=== PATIENT | male | born 1995 | race Caucasian/White ===

== ENCOUNTER 2018-05-11 01:32 | Emergency (ER) | payer OTHER ==
[~2018-05-11] VITALS: Ht 185.4 cm; Wt 82.8 kg
[2018-05-11] MEDS ORDERED: ETOMIDATE INJ 20MG/10ML VIAL ONE (01:33)
[2018-05-11] MEDS ORDERED: SUCCINYLCHOLINE 100 MG/5 ML SYRINGE (J0330) ONE (01:33)
[2018-05-11] MEDS ORDERED: PROPOFOL 1,000 MG/100 ML VIAL As Ordered ONE ×2 (01:36→03:01)
[2018-05-11] MEDS ORDERED: ISOVUE-370 76% 100ML VIAL (Q9967) As Ordered ONE (01:58)
[2018-05-11] MEDS ORDERED: PATIENT COMMENTS (02:02)
[2018-05-11 02:05] LABS: HEMATOCRIT 44.6 % (42.0-52.0); MEAN CORPUSCULAR HEMOGLOBIN 31.6 pg (27.0-33.0); MEAN CORPUSCULAR HGB CONC 33.6 g/dl (32.0-36.5); MEAN CORPUSCULAR VOLUME 94.1 fl (80.0-96.0); PLATELET COUNT, AUTOMATED 299 10^3/uL (150-450); RED BLOOD COUNT 4.74 10^6/uL (4.30-6.10); WHITE BLOOD COUNT 10.8 10^3/uL (4.0-10.0)
[2018-05-11 02:17] LABS: INR 1.21; PROTHROMBIN TIME 15.5 SECONDS (12.1-14.4)
[2018-05-11 02:18] LABS: PARTIAL THROMBOPLASTIN TIME 27.1 SECONDS (25.4-37.6)
[2018-05-11 02:20] LABS: ALT/SGPT 255 U/L (12-78); BILIRUBIN,DIRECT < 0.1 MG/DL (0.0-0.2); BILIRUBIN,TOTAL 0.2 MG/DL (0.2-1.0); BLOOD UREA NITROGEN 17 MG/DL (7-18); CALCIUM LEVEL 9.2 MG/DL (8.5-10.1); CARBON DIOXIDE LEVEL 22 MEQ/L (21-32); CHLORIDE LEVEL 102 MEQ/L (98-107); CREATININE FOR GFR 1.53 MG/DL (0.70-1.30); ETHYL ALCOHOL (ETHANOL) 0.182 % (0.000-0.010); GLOMERULAR FILTRATION RATE 59.8 (>60); GLUCOSE, FASTING 128 MG/DL (70-100); LIPASE 470 U/L (73-393); POTASSIUM SERUM 3.5 MEQ/L (3.5-5.1); SODIUM LEVEL 137 MEQ/L (136-145); TOTAL PROTEIN 7.3 GM/DL (6.4-8.2)
[2018-05-11 02:25] LABS: ATYPICAL LYMPH 4 % (0-5); BASOPHILS 1 % (0-4); LYMPHOCYTES 41 % (16-52); MONOCYTES 3 % (0-8); NEUTROPHILS 51 % (35-75)
[2018-05-11 02:26] LABS: PLATELET ESTIMATE NORMAL (NORMAL)
[2018-05-11 02:53] LABS: ABG BASE EXCESS -5.6 (-2.0-2.0); ABG HCO3 19.3 MEQ/L (22.0-26.0); ABG O2 SATURATION 98.9 % (95.0-99.0); ABG PARTIAL PRESSURE CO2 35.7 mmHg (35.0-45.0); ABG PARTIAL PRESSURE O2 146.6 mmHg (75.0-100.0); ABG STANDARD HCO3 19.9 MEQ/L (22.0-26.0); ABG TOTAL CO2 20.4 MEQ/L (22.0-29.0)
[2018-05-11] MEDS ORDERED: ETOMIDATE INJ 20MG/10ML VIAL IV STA (02:57)
[2018-05-11] MEDS ORDERED: SUCCINYLCHOLINE INJ 200 MG/10 ML VIAL (J0330) IV STA (02:57)
[2018-05-11] MEDS ORDERED: NS 1,000 ML IV SCH ×2 (03:00)
[2018-05-11] MEDS ORDERED: NS 1,000 ML IV ONE ×2 (03:00)
[2018-05-11] MEDS ORDERED: PROPOFOL 200 MG/20 ML VIAL IV ONE (03:00)
[2018-05-11] MEDS: PROPOFOL 1,000 MG in APPROPRIATE DILUENT 1 EA IV SCH ×2 (03:22→03:23)
--- NOTE | 2018-05-11 03:48 | REPVR ---
EXAM: CT Head Without Contrast EXAM DATE/TIME: 05/11/2018 1:47 AM CLINICAL HISTORY: 22 years old, male; Injury or trauma; Fall TECHNIQUE: Axial computed tomography images of the head/brain without contrast. All CT scans at this facility use at least one of these dose optimization techniques: automated exposure control; mA and/or kV adjustment per patient size (includes targeted exams where dose is matched to clinical indication); or iterative reconstruction. COMPARISON: CT Maxilofacial w/out contrast 05/11/2018 1:58:15 AM FINDINGS: Tubes, catheters and devices: Endotracheal tube and orogastric tubes were partially imaged. Brain: There is no evidence for an acute large vessel territorial infarct, intracranial hemorrhage, mass, mass effect, or herniation. The cortical gyration pattern, basal ganglia, thalami, and cerebellum are normal in appearance. Brainstem: Unremarkable. Midline shift: There is no midline shift. Ventricles: Normal. No ventriculomegaly. Bones/joints: There are multiple acute displaced bilateral facial bone fractures ([place] type 1, 2, and 3), with involvement of the bilateral medial and lateral pterygoid plates, nasal aperture and piriform rim, nasal septum, frontal maxillary suture, nasofrontal junction, anterior, medial, and lateral morel of the maxillary sinuses, medial, lateral, and inferior orbital morel bilaterally, zygomaticofrontal and zygomaticosphenoid sutures bilaterally, and zygomatic arches bilaterally. There is also acute, displaced fractures of the mandibular rami bilaterally, right mandibular condyle, and the mandibular symphysis. The mandibular condyles rest over the articular eminences. There are acute fractures involving the maxillary alveolar ridge and hard palate. There are acute fractures of the anterior morel of both frontal sinuses. There are acute fractures involving the nasal bones and spinous process of maxilla bilaterally. There is a fracture involving the left upper central incisor. The fracture of the maxillary alveolar ridge runs across the roots of the upper central incisors, upper lateral incisors, and left upper canine. The fracture of the mandibular symphysis courses between the left lower central incisor and left lower lateral incisor. Sinuses: There is severe opacification of the maxillary and ethmoid sinuses with hemorrhage in the sinuses. A small amount of hemorrhage is also noted in the frontal sinuses. The sphenoid sinuses are well aerated. Mastoid air cells: Normal as visualized. No mastoid effusion. Orbits: The globes are intact. Soft tissues: There is extensive soft tissue swelling and bruising in the face and periorbital regions. Foci of air are noted in the soft tissues in the periorbital regions and in the soft tissues around the multiple facial bone fractures. Nasopharynx: There are extensive secretions in the nasopharynx. Oropharynx: Extensive secretions are noted in the oropharynx. IMPRESSION: 1. Extensive acute bilateral [place] type 1, 2, and 3 facial bone fractures. 2. Acute, displaced fractures of the mandibular rami bilaterally, right mandibular condyle, and the mandibular symphysis. 3. Acute fractures involving the maxillary alveolar ridge, hard palate, left upper central incisor. 4. Acute fractures of the anterior morel of both frontal sinuses. 5. Acute fractures involving the nasal bones and spinous process of maxilla bilaterally. 6. No acute intracranial hemorrhage. Electronically signed by: Mick Eisenberg On 05/11/2018 03:47:45 AM
--- NOTE | 2018-05-11 03:48 | REPVR ---
EXAM: CT Maxillofacial Without Contrast EXAM DATE/TIME: 05/11/2018 1:47 AM CLINICAL HISTORY: 22 years old, male; Injury or trauma; Fall; Initial encounter; Blunt trauma (contusions or hematomas); Cheek bone and eyelid and head/scalp and forehead and nose and ocular (eye or eyeball) and orbit/periorbital and maxilla and jaw and lip/oral cavity; Loss of consciousness; Not specified; Bilateral; Both upper and lower TECHNIQUE: Axial computed tomography images of the face without intravenous contrast. All CT scans at this facility use at least one of these dose optimization techniques: automated exposure control; mA and/or kV adjustment per patient size (includes targeted exams where dose is matched to clinical indication); or iterative reconstruction. Coronal and sagittal reformatted images were created and reviewed. COMPARISON: CT Head without contrast 05/11/2018 1:58:15 AM FINDINGS: Tubes, catheters and devices: Endotracheal tube and orogastric tubes were partially imaged. Orbits: The globes are intact. There are foci of gas in the orbits bilaterally. Mastoid air cells: Normal as visualized. No mastoid effusion. Sinuses: There is severe opacification of the maxillary and ethmoid sinuses with hemorrhage in the sinuses. A small amount of hemorrhage is also noted in the frontal sinuses. The sphenoid sinuses are well aerated. Bones/joints: There are multiple acute displaced bilateral facial bone fractures ([place] type 1, 2, and 3), with involvement of the bilateral medial and lateral pterygoid plates, nasal aperture and piriform rim, nasal septum, frontal maxillary suture, nasofrontal junction, anterior, medial, and lateral morel of the maxillary sinuses, medial, lateral, and inferior orbital morel bilaterally, zygomaticofrontal and zygomaticosphenoid sutures bilaterally, and zygomatic arches bilaterally. There is also acute, displaced fractures of the mandibular rami bilaterally, right mandibular condyle, and the mandibular symphysis. The mandibular condyles rest over the articular eminences. There are acute fractures involving the maxillary alveolar ridge and hard palate. There are acute fractures of the anterior morel of both frontal sinuses. There are acute fractures involving the nasal bones and spinous process of maxilla bilaterally. There is a fracture involving the left upper central incisor. The fracture of the maxillary alveolar ridge runs across the roots of the upper central incisors, upper lateral incisors, and left upper canine. The fracture of the mandibular symphysis courses between the left lower central incisor and left lower lateral incisor. Nasopharynx: There are extensive secretions in the nasopharynx. Oropharynx: Extensive secretions are noted in the oropharynx. Soft tissues: There is extensive soft tissue swelling and bruising in the face and periorbital regions. Foci of air are noted in the soft tissues in the periorbital regions and in the soft tissues around the multiple facial bone fractures. IMPRESSION: 1. Extensive acute bilateral [place] type 1, 2, and 3 facial bone fractures. 2. Acute, displaced fractures of the mandibular rami bilaterally, right mandibular condyle, and the mandibular symphysis. 3. Acute fractures involving the maxillary alveolar ridge, hard palate, left upper central incisor. 4. Acute fractures of the anterior morel of both frontal sinuses. 5. Acute fractures involving the nasal bones and spinous process of maxilla bilaterally. 6. No acute intracranial hemorrhage. Electronically signed by: Mick Eisenberg On 05/11/2018 03:48:01 AM
--- NOTE | 2018-05-11 04:04 | REPVR ---
EXAM: CT Thoracic Spine Without Contrast EXAM DATE/TIME: 05/11/2018 1:47 AM CLINICAL HISTORY: 22 years old, male; Injury or trauma; Fall; Initial encounter; Blunt trauma (contusions or hematomas) TECHNIQUE: Axial computed tomography images of the thoracic spine without intravenous contrast. All CT scans at this facility use at least one of these dose optimization techniques: automated exposure control; mA and/or kV adjustment per patient size (includes targeted exams where dose is matched to clinical indication); or iterative reconstruction. Coronal and sagittal reformatted images were created and reviewed. COMPARISON: No relevant prior studies available. FINDINGS: Vertebrae: The alignment of the thoracic spine is within normal limits. There is no fracture or subluxation. The vertebral body heights are preserved. No suspicious osteolytic or osteoblastic lesion is noted. Discs/Spinal canal/Neural foramina: The disc heights are preserved. No disc herniation, spinal canal stenosis, or neural foraminal stenosis is identified at any of the imaged levels. The facet joints are unremarkable. Soft tissues: Unremarkable. No soft tissue fluid collection is noted. IMPRESSION: No fracture or subluxation in the thoracic spine. Electronically signed by: Mick Eisenberg On 05/11/2018 04:03:49 AM
--- NOTE | 2018-05-11 04:04 | REPVR ---
EXAM: CT Lumbar Spine Without Contrast EXAM DATE/TIME: 05/11/2018 1:47 AM CLINICAL HISTORY: 22 years old, male; Injury or trauma; Fall; Initial encounter; Concussion /head injury TECHNIQUE: Axial computed tomography images of the lumbar spine without intravenous contrast. All CT scans at this facility use at least one of these dose optimization techniques: automated exposure control; mA and/or kV adjustment per patient size (includes targeted exams where dose is matched to clinical indication); or iterative reconstruction. Coronal and sagittal reformatted images were created and reviewed. COMPARISON: No relevant prior studies available. FINDINGS: Vertebrae: There are 5 non-rib bearing lumbar type vertebral bodies. There is a slight levoscoliosis of the lumbar spine. There is no fracture, pars defect, or subluxation. The vertebral body heights are preserved. Soft tissues: Unremarkable. Vasculature: No abdominal aortic aneurysm. DISCS/SPINAL CANAL/NEURAL FORAMINA: L1-L2: The disc height is preserved. No disc herniation, spinal canal stenosis, lateral recess stenosis, or neural foraminal stenosis is identified. The facet joints are normal. L2-L3: The disc height is preserved. No disc herniation, spinal canal stenosis, lateral recess stenosis, or neural foraminal stenosis is identified. The facet joints are normal. L3-L4: The disc height is preserved. No disc herniation, spinal canal stenosis, lateral recess stenosis, or neural foraminal stenosis is identified. The facet joints are normal. L4-L5: The disc height is preserved. No disc herniation, spinal canal stenosis, lateral recess stenosis, or neural foraminal stenosis is identified. The facet joints are normal. L5-S1: The disc height is preserved. No disc herniation, spinal canal stenosis, lateral recess stenosis, or neural foraminal stenosis is identified. The facet joints are normal. IMPRESSION: No fracture or subluxation in the lumbar spine. Electronically signed by: Mick Eisenberg On 05/11/2018 04:03:36 AM
--- NOTE | 2018-05-11 04:09 | REPVR ---
EXAM: CT Chest With Contrast EXAM DATE/TIME: 05/11/2018 1:47 AM CLINICAL HISTORY: 22 years old, male; Injury or trauma; Fall; Initial encounter; Concussion /head injury TECHNIQUE: Axial computed tomography images of the chest with intravenous contrast. All CT scans at this facility use at least one of these dose optimization techniques: automated exposure control; mA and/or kV adjustment per patient size (includes targeted exams where dose is matched to clinical indication); or iterative reconstruction. Coronal and sagittal reformatted images were created and reviewed. CONTRAST: 100 ml of iso administered intravenously. COMPARISON: No relevant prior studies available. FINDINGS: Tubes, catheters and devices: The endotracheal tube terminates 2.2 cm above the anna in the trachea. An orogastric tube is seen in the stomach. Thyroid: Unremarkable. Lungs: There are several ground glass opacities in the left upper lobe, lingula, and both lower lobes, which are compatible with pulmonary contusions. There are cystic changes in both lower lobes, which represent pulmonary lacerations, the largest measuring 2 cm in the left lower lobe. Pleural space: Normal. No pneumothorax. No pleural effusion. Heart: No cardiomegaly. No pericardial effusion. Mediastinum: There is fluid in the esophagus. No mediastinal hemorrhage or pneumomediastinum is noted. Aorta: There is no thoracic aortic aneurysm, pseudoaneurysm, penetrating atherosclerotic ulcer, or dissection. Lymph nodes: Normal. No enlarged lymph nodes. Bones/joints: The imaged bony structures are intact. There is no suspicious osteolytic or osteoblastic lesion. Soft tissues: Unremarkable. IMPRESSION: Pulmonary contusions in the left upper lobe, lingula, and both lower lobes and pulmonary lacerations in both lower lobes. Electronically signed by: Mick Eisenberg On 05/11/2018 04:09:11 AM
[2018-05-11 04:15] VITALS: BP 110/57
--- NOTE | 2018-05-11 04:16 | REPVR ---
EXAM: CT Cervical Spine Without Contrast EXAM DATE/TIME: 05/11/2018 1:47 AM CLINICAL HISTORY: 22 years old, male; Injury or trauma; Fall; Initial encounter; Concussion /head injury TECHNIQUE: Axial computed tomography images of the cervical spine without intravenous contrast. All CT scans at this facility use at least one of these dose optimization techniques: automated exposure control; mA and/or kV adjustment per patient size (includes targeted exams where dose is matched to clinical indication); or iterative reconstruction. Coronal and sagittal reformatted images were created and reviewed. COMPARISON: CT Maxilofacial w/out contrast 05/11/2018 1:58:15 AM FINDINGS: Tubes, catheters and devices: An endotracheal tube and orogastric tube were partially imaged. Vertebrae: There is a small bony fragment adjacent to the posterolateral aspect of the right inferior articular process of C5, which is most compatible with an acute fracture (images 20-29 of the sagittal series 4). No other fractures are seen in the cervical spine. The alignment of the cervical spine is normal. The vertebral body heights are preserved. There is no cervical rib. Other bones: There are multiple partially imaged facial bone fractures. See the CT Maxilofacial w/out contrast report on 05/11/2018 for further details. Soft tissues: No soft tissue fluid collection is noted in the cervical paraspinal soft tissues. Prevertebral Space: No prevertebral soft tissue swelling is noted. Lungs: The imaged lung apices are normal. Dental: There are dental caries involving the left upper third molar (image 20 of the coronal series 303). DISCS/SPINAL CANAL/NEURAL FORAMINA: C2-C3: The disc height is preserved. No disc herniation, spinal canal stenosis, or neural foraminal stenosis is identified. The facet joints are normal. C3-C4: The disc height is preserved. No disc herniation, spinal canal stenosis, or neural foraminal stenosis is identified. The facet joints are normal. C4-C5: The disc height is preserved. No disc herniation, spinal canal stenosis, or neural foraminal stenosis is identified. The facet joints are normal. C5-C6: The disc height is preserved. No disc herniation, spinal canal stenosis, or neural foraminal stenosis is identified. The facet joints are normal. C6-C7: The disc height is preserved. No disc herniation, spinal canal stenosis, or neural foraminal stenosis is identified. The facet joints are normal. C7-T1: The disc height is preserved. No disc herniation, spinal canal stenosis, or neural foraminal stenosis is identified. The facet joints are normal. T1-T2: The disc height is preserved. No disc herniation, spinal canal stenosis, or neural foraminal stenosis is identified. The facet joints are normal. IMPRESSION: 1. Acute fracture of the right inferior articular process of C5. 2. Dental caries involving the left upper third molar. Electronically signed by: Mick Eisenberg On 05/11/2018 04:15:40 AM
--- NOTE | 2018-05-11 04:30 | REPVR ---
EXAM: CT Abdomen and Pelvis With Contrast EXAM DATE/TIME: 05/11/2018 1:47 AM CLINICAL HISTORY: 22 years old, male; Injury or trauma; Fall; Initial encounter; Concussion/head injury TECHNIQUE: Axial computed tomography images of the abdomen and pelvis with intravenous contrast. All CT scans at this facility use at least one of these dose optimization techniques: automated exposure control; mA and/or kV adjustment per patient size (includes targeted exams where dose is matched to clinical indication); or iterative reconstruction. Coronal and sagittal reformatted images were created and reviewed. CONTRAST: 100 ml of iso administered intravenously. COMPARISON: No relevant prior studies available. FINDINGS: Tubes, catheters and devices: There is an orogastric tube terminating in the distal body of the stomach. Lower thorax: There are pulmonary lacerations in both lower lobes, the largest measuring 2 cm in the left lower lobe. ABDOMEN: Liver: Intact. No liver lesion is seen. The contour of the liver is smooth. No hepatomegaly is noted. Gallbladder and bile ducts: No calcifications are seen in the gallbladder to suggest calculi. No gallbladder wall thickening, pericholecystic fluid, or pericholecystic inflammatory changes are identified. No dilation of the intrahepatic or extrahepatic bile ducts is noted. Pancreas: Normal. No ductal dilation. Spleen: Normal. No splenomegaly. Adrenals: Normal. No mass. Kidneys and ureters: There are areas of hypoattenuation in the superior, mid, and inferior poles of the left kidney, the largest measuring up to 5.6 cm in the mid to inferior pole and involving the cortex and medulla, which may indicate grade 1 renal contusions. No perinephric fluid collection is noted. The right kidney is intact and normal in appearance. There is no hydronephrosis or hydroureter. No periureteral fluid collection is noted. Stomach and bowel: There is no evidence for a bowel obstruction, diverticulosis, diverticulitis, colitis, pneumatosis intestinalis, intussusception, volvulus, or perforated viscus. Appendix: Normal. There is no evidence for appendicitis. PELVIS: Bladder: The distended urinary bladder is intact and normal in appearance. No stones are noted in the urinary bladder. Reproductive: The prostate gland and seminal vesicles are unremarkable. ABDOMEN and PELVIS: Intraperitoneal space: Normal. No free air. No fluid collection. Bones/joints: There is an acute, severely comminuted, displaced intra-articular fracture of the left distal radius. There is a small avulsed bony fragment arising from the left dorsal triquetrum (image 103 of the axial series 205). There is also an avulsed fragment of bone arising from the dorsal aspect of the lunate (image 100 of the axial series 205). Incidental note is made of small well-corticated ossicles adjacent to both acetabulum, which represent os acetabuli. Soft tissues: There is soft tissue swelling in the left wrist. Vasculature: The abdominal aorta is normal in caliber and patent. The renal arteries, celiac artery, superior mesenteric artery, and inferior mesenteric artery are patent. The portal veins, splenic vein, superior mesenteric vein, inferior mesenteric vein, and renal veins are patent. Lymph nodes: Normal. No enlarged lymph nodes. IMPRESSION: 1. Grade 1 left renal contusions. 2. Acute, severely comminuted, displaced intra-articular fracture of the left distal radius. 3. Acute avulsion fractures involving the dorsal aspect of the left lunate and dorsal aspect of the left triquetrum. Electronically signed by: Mick Eisenberg On 05/11/2018 04:29:50 AM
--- NOTE | 2018-05-11 11:49 | REP ---
AP SUPINE CHEST: 05/11/2018. Comparison: CT chest earlier this date. Clinical history: Endotracheal tube. NG tube. Trauma patient. Findings. Right lateral chest wall excluded. Nasogastric tube courses through the mediastinum into the left upper quadrant, tip off the field well into the stomach. Endotracheal tube sits about 4 cm above the anna but below the thoracic inlet. Lungs marginally adequate in the degree of inflation. No widening of the mediastinum. Heart size normal. Bones without acute finding. Electronically Signed by Rebel Gomez MD 05/11/2018 01:41 P
--- NOTE | 2018-05-11 13:14 | REP ---
LEFT FOREARM: 05/11/2018. Clinical history: Trauma. Comparison: Left wrist at this time. Findings: Portable technique with three views provided. There is a mid shaft fracture of the ulna with dorsal displacement three-quarter shaft width of the distal major fragment with tiny fragments adjacent to the more proximal major fragment. Subcutaneous edema and subcutaneous air is present. I cannot exclude that this has been an open fracture at some point. There is only minimal angulation. Radial shaft was intact. Area about the elbow unremarkable. IV in the antecubital fossa noted. There is a comminuted displaced intra-articular fracture distal radial metaphysis. Please see the wrist report for more detail. Electronically Signed by Rebel Gomez MD 05/11/2018 02:04 P
--- NOTE | 2018-05-11 13:20 | REP ---
RIGHT FOREARM: 05/11/2018. Clinical History: Trauma. Comparison: Right wrist this date. Findings: Three views were provided. The radial ulnar shafts are intact. That portion of elbow seen is grossly unremarkable. An IV at the antecubital fossa noted. The distal radius and ulna show no fracture, but there is a very abnormal appearance of the wrist with scaphoid fracture and dislocation of the capitate from the lunate. Impression: 1. No radial or ulnar fracture but carpal fracture and dislocation as described. Please see the wrist report for more detail. Electronically Signed by Rebel Gomez MD 05/11/2018 02:04 P
--- NOTE | 2018-05-11 13:20 | REP ---
LEFT WRIST TWO VIEWS: 05/11/2018. Comparison: Left forearm this date. Clinical history: Trauma. Findings: Portable technique shows a displaced comminuted intra-articular distal radial metaphyseal fracture with multiple fragments. The articular aspect of the distal radius is displaced dorsally and fragmented with at least two major and suspected smaller fragments. The carpus has stayed related with this distal epiphyseal fragment. However, small avulsions are noted dorsally on the near lateral view that may reflect a proximal carpal row avulsion. This is a very limited study. Electronically Signed by Rebel Gomez MD 05/11/2018 02:04 P
--- NOTE | 2018-05-11 13:22 | REP ---
AP LATERAL RIGHT WRIST: 05/11/2018: Comparison: Right forearm series this date. Clinical history: Trauma. Findings: Only two views are provided with portable technique, significantly limiting the examination. The AP view shows no gross fracture of the distal radius or ulna. The carpal bones show a displaced fracture of the waist of the scaphoid and that the capitate is dislocated from the lunate. Tiny avulsion fragment on the oblique lateral view of the lunate and the capitate is displaced dorsally from the lunate. No other significant finding but very limited examination, further imaging necessary. Electronically Signed by Rebel Gomez MD 05/11/2018 02:04 P
== END 2018-05-11 04:42 | disposition short-term general hospital (02) ==
LOC: M ED 01:32
DX: S02.411A LeFort I fracture, initial encounter for closed fracture (principal); S02.412A LeFort II fracture, initial encounter for closed fracture; S02.413A LeFort III fracture, initial encounter for closed fracture; S02.641A Fracture of ramus of right mandible, initial encounter for closed fracture; S02.642A Fracture of ramus of left mandible, initial encounter for closed fracture; S02.611A Fracture of condylar process of right mandible, initial encounter for closed fracture; S02.66XA Fracture of symphysis of mandible, initial encounter for closed fracture; S02.42XA Fracture of alveolus of maxilla, initial encounter for closed fracture; S02.19XA Other fracture of base of skull, initial encounter for closed fracture; S02.2XXA Fracture of nasal bones, initial encounter for closed fracture; S52.252A Displaced comminuted fracture of shaft of ulna, left arm, initial encounter for closed fracture; S52.572A Other intraarticular fracture of lower end of left radius, initial encounter for closed fracture; S62.021A Displaced fracture of middle third of navicular [scaphoid] bone of right wrist, initial encounter for closed fracture; S62.131A Displaced fracture of capitate [os magnum] bone, right wrist, initial encounter for closed fracture; S62.121A Displaced fracture of lunate [semilunar], right wrist, initial encounter for closed fracture; S12.491A Other nondisplaced fracture of fifth cervical vertebra, initial encounter for closed fracture; S27.322A Contusion of lung, bilateral, initial encounter; S27.332A Laceration of lung, bilateral, initial encounter; W13.1XXA Fall from, out of or through bridge, initial encounter; Y92.89 Other specified places as the place of occurrence of the external cause
CPT/HCPCS: 31500; 36600; 70450; 70486; 71045; 71260; 72125; 72128; 72131; 73090; 73100; 74177; 80048; 80076; 82803; 83690; 85025; 85610; 85730; 86850; 86900; 86901; 96374; 96375; 96376; 99291; 99292; G0480; J0330; J0690; Q9967

== ENCOUNTER 2018-06-03 21:42 | Emergency (ER) | payer OTHER ==
[~2018-06-03] VITALS: Ht 185.4 cm; Wt 72.7 kg
[~2018-06-03 21:42] MED LIST: PATIENT COMMENTS
[2018-06-03] MEDS ORDERED: IBUP-1114 PO (22:18)
[2018-06-03] MEDS ORDERED: GABA-843 PO (22:18)
[2018-06-03] MEDS ORDERED: BACI500O8 TOP (22:18)
[2018-06-03] MEDS ORDERED: ACET1LIQ PO (22:18)
[2018-06-03] MEDS ORDERED: AFRI0.0511 (22:18)
[2018-06-03] MEDS ORDERED: MIRA3350 PO (22:18)
[2018-06-03] MEDS ORDERED: PERI12LIQ PO (22:18)
[2018-06-03] MEDS ORDERED: STOO100C PO (22:18)
[2018-06-03] MEDS ORDERED: NORCOTAB PO (22:40)
[2018-06-03] MEDS ORDERED: CEPHALEXIN 500 MG CAP PO ONE (22:45)
[2018-06-03] MEDS ORDERED: NORCO 5/325MG TABLET (BULK FOR ED) PO ONE (22:45)
[2018-06-03] MEDS ORDERED: KEFL500C17 PO (22:45)
[2018-06-03 22:49] VITALS: BP 145/78
== END 2018-06-03 22:50 | disposition home or self-care (01) ==
LOC: M ED 21:42
DX: G89.18 Other acute postprocedural pain (principal); R22.0 Localized swelling, mass and lump, head; Z79.899 Other long term (current) drug therapy

== ENCOUNTER 2018-08-15 18:04 | Emergency (ER) | payer OTHER ==
[~2018-08-15] VITALS: Ht 185.4 cm; Wt 74.6 kg
[~2018-08-15 18:04] MED LIST changes: +ACET1LIQ PO; +AFRI0.0511; +BACI500O8 TOP; +GABA-843 PO; +HYDR-3715 PO; +IBUP-1114 PO; +KEFL500C17 PO; +MIRA3350 PO; +PERI12LIQ PO; +STOO100C PO
--- NOTE | 2018-08-15 19:34 | REP ---
REASON: Wrist pain after fall. COMPARISON: Preoperative examination 05/11/2018. Previous two view portable examination showed a scaphoid fracture which has been openly reduced and internally fixed. There is also evidence of a triquetral fracture seen in a limited fashion on this plain film exam. IMPRESSION:1. Previous ORIF to reduce the scaphoid fracture with pin in place. 2. Evidence of a triquetral fracture. Electronically Signed by Miles Rosario DO 08/15/2018 07:52 P
[2018-08-15 20:06] VITALS: BP 132/72
== END 2018-08-15 20:22 | disposition home or self-care (01) ==
LOC: M ED 18:04
DX: S62.114A Nondisplaced fracture of triquetrum [cuneiform] bone, right wrist, initial encounter for closed fracture (principal); W19.XXXA Unspecified fall, initial encounter; Y92.89 Other specified places as the place of occurrence of the external cause; Z98.890 Other specified postprocedural states

== ENCOUNTER → 2018-12-20 | Outpatient (REF) | payer OTHER ==
[~2018-12-20] MED LIST changes: +MM S100C PO; -STOO100C PO
[2018-12-20 12:48] LABS: SEMEN APPEARANCE OPAQUE (OPAQUE); SEMEN VISCOSITY LIQUID (LIQUID); SEMEN VOLUME 2.4 ML (2.0-5.0)
[2018-12-20 12:49] LABS: SEMEN WBC >1 M/ml (<=1 M/ml)
== END ==
LOC: M LAB REF 12:19
PROVIDERS: ATTEND Obstetrics & Gynecology
DX: Z31.41 Encounter for fertility testing (principal)

== ENCOUNTER → 2019-01-06 | Outpatient (REF) | payer OTHER ==
[2019-01-06 14:04] LABS: SEMEN APPEARANCE OPAQUE (OPAQUE); SEMEN VISCOSITY LIQUID (LIQUID); SEMEN VOLUME 1.3 ml (2.0-5.0); WBC CONCENTRATION >1 M/ml (<=1 M/ml)
== END ==
LOC: M LAB REF 13:48
PROVIDERS: ATTEND Obstetrics & Gynecology
DX: N46.9 Male infertility, unspecified (principal)